=== PATIENT | female | born 1970 | race Asian ===

== ENCOUNTER 2022-06-03 13:29 | Emergency (ER) | payer OTHER ==
[~2022-06-03] VITALS: Ht 165.1 cm; Wt 104.8 kg
[2022-06-03 13:29] VITALS: BP 154/87; TEMP 97.4
[2022-06-03] MEDS ORDERED: LIPITOR10 MG PO (14:24)
[2022-06-03] MEDS ORDERED: FAMO20TA4 PO (14:25)
[2022-06-03] MEDS ORDERED: BANOPHEN25 MG PO (14:25)
[2022-06-03] MEDS ORDERED: FLUOXETINE20 MG PO (14:26)
[2022-06-03] MEDS ORDERED: LATA0.00 OPTH (14:27)
[2022-06-03] MEDS ORDERED: GLYCOLAX17 GM/SCOO PO (14:27)
[2022-06-03] MEDS ORDERED: OXYB5TAB64 PO (14:28)
[2022-06-03] MEDS ORDERED: CLARITIN10 M1 PO (14:28)
[2022-06-03] MEDS ORDERED: PHENOBARB32.4 MG PO (14:29)
[2022-06-03] MEDS ORDERED: PHENOBARB64.8 MG PO (14:29)
[2022-06-03] MEDS ORDERED: BUSPIRONE HYDROC5 MG PO (14:30)
[2022-06-03] MEDS ORDERED: CLON0.5T36 PO (14:30)
[2022-06-03] MEDS ORDERED: CLON1TAB18 PO (14:31)
[2022-06-03] MEDS ORDERED: COMBIGAN0.2 MG/0.5 OPTH (14:31)
[2022-06-03] MEDS ORDERED: APIX1TAB PO (14:32)
[2022-06-03] MEDS ORDERED: DQZATE100 MG PO (14:32)
[2022-06-03] MEDS ORDERED: FERROUS SULF325 M1 PO (14:33)
[2022-06-03] MEDS ORDERED: KEPPRA750 MG PO (14:33)
[2022-06-03] MEDS ORDERED: BACLOFEN20 MG PO (14:35)
[2022-06-03] MEDS ORDERED: CARBAMAZEPIN200 MG PO (14:35)
[2022-06-03] MEDS ORDERED: [UNRECOGNIZED DRUG - OTHER] PO (14:36)
== END 2022-06-03 14:30 | disposition still patient (30) ==
LOC: ED 13:29
DX: R46.89 Other symptoms and signs involving appearance and behavior (principal); U07.1 COVID-19; Z04.6 Encounter for general psychiatric examination, requested by authority
CPT/HCPCS: 87635; 99283; U0003